=== PATIENT | male | born 1975 | race Caucasian/White ===

== ENCOUNTER 2019-04-11 14:42 | Emergency (ER) | payer BC ==
[2019-04-11 14:53] VITALS: BP 167/115
--- NOTE | 2019-04-11 17:29 | ER Document Report ---
ED Medical Screen (RME) - General Chief Complaint: Dizziness Stated Complaint: HEADACHE,DIZZINESS Time Seen by Provider: 04/11/19 17:20 - [facility] Notes: 04/11/19 17:27 Patient is a 43-year-old male with no significant past medical history who presents complaining of intermittent lightheadedness, dizziness, headaches over the past 3 weeks. Patient states that he does have some pain to his right mid back that does not radiate. Patient states that he has not seen a provider in over 15 years and is here today to have any and every test done as he does not have a family doctor. Patient states that the dizziness and lightheadedness is primarily when he is turning his head and with movements. Patient states that the headache location varies. He will have occasional blurriness to his vision. Patient states that his symptoms are currently mild this time. He is able to eat and drink without difficulty. He is urinating normally and having normal bowel movements. Denies any drug use. Denies any fever, head injury, neck p ain, changes in speech/mentation/hearing, URI, sore throat, chest pain, palpitations, syncope, cough, shortness of breath, wheeze, dyspnea, abdominal pain, nausea/vomiting/diarrhea, urinary retention, dysuria, hematuria, loss of control of bowel or bladder, numbness/tingling, saddle anesthesia, muscle paralysis/weakness, or rash. I have treated and performed a rapid initial assessment of this patient. A comprehensive ED assessment and evaluation of the patient, analysis of test results and completion of medical decision making process will be conducted by additional ED providers. PHYSICAL EXAMINATION: GENERAL: Well-appearing, well-nourished and in no acute distress. A&Ox4. Answers questions appropriately. HEAD: Atraumatic, normocephalic. Non-tender. EYES: Pupils equal round and reactive to light, extraocular movements intact, sclera anicteric, conjunctiva are normal. No nystagmus. ENT: EAC clear b/l. TM's intact b/l without erythema, fluid, or perforation. Nares patent and without discharge. oropharynx clear without exudates. No tonsilar hypertrophy or erythema. Moist mucous membranes. NECK: Normal range of motion, supple without lymphadenopathy. No rigidit y/meningismus. No midline tenderness. LUNGS: Breath sounds clear to auscultation bilaterally and equal. No wheezes rales or rhonchi. HEART: Regular rate and rhythm without murmurs, rubs, gallops. ABDOMEN: Soft, nontender, nondistended abdomen. No guarding, no rebound. Normal bowel sounds present. Musculoskeletal: Ext b/l: FROM to passive/active. Strength 5+/5. No deficits noted. No bony tenderness of extremities. Extremities: No cyanosis, clubbing, or edema b/l. Peripheral pulses 2+. Capillary refill less than 2 seconds. NEUROLOGICAL: NIH 0. GCS 15. Cranial nerves grossly intact. Normal speech, normal gait. Normal sensory, motor exams. Reflexes 2+ b/l. LUCINDA's negative. Pronator drift negative. Heel/arthur, finger/nose wnl. Romberg neg. PSYCH: Normal mood, normal affect. SKIN: Warm, Dry, normal turgor, no rashes or lesions noted. - Related Data Allergies/Adverse Reactions: Penicillins Allergy (Verified 04/11/19 14:45) Past Medical History - Social History Frequency of alcohol use: Occasional Drug Abuse: None Renal/ Medical History: Denies: Hx Peritoneal Dialysis Past Surgical History: Reports: Hx Orthopedic Surgery - left arm and carpal tunnel, finger Physical Exam - Vital signs Vitals: Temp Pulse Resp BP Pulse Ox 98.3 F 90 18 167/115 H 96 04/11/19 14:52 04/11/19 14:52 04/11/19 14:52 04/11/19 14:52 04/11/19 14:52 Course - Vital Signs Vital signs: Temp Pulse Resp BP Pulse Ox 98.3 F 90 18 167/115 H 96 04/11/19 14:52 04/11/19 14:52 04/11/19 14:52 04/11/19 14:52 04/11/19 14:52
[2019-04-11 18:16] LABS: ABSOLUTE BASOPHILS # (AUTO) 0.1 10^3/uL (0.0-0.2); ABSOLUTE EOSINOPHILS # (AUTO) 0.5 10^3/uL (0.0-0.6); ABSOLUTE LYMPHOCYTES (AUTO) 1.9 10^3/uL (0.5-4.7); ABSOLUTE MONOCYTES (AUTO) 0.7 10^3/uL (0.1-1.4); ABSOLUTE NEUT (AUTO) 7.5 10^3/uL (1.7-8.2); BASOPHILS % (AUTO) 0.8 % (0-2); EOSINOPHILS % (AUTO) 5.1 % (0-6); HEMATOCRIT 48.5 % (37.9-51.0); HEMOGLOBIN 16.8 g/dL (13.5-17.0); LYMPHOCYTES % (AUTO) 17.5 % (13-45); MEAN CORPUSCULAR HEMOGLOBIN 30.9 pg (27.0-33.4); MEAN CORPUSCULAR HGB CONC 34.6 g/dL (32.0-36.0); MEAN CORPUSCULAR VOLUME 89 fl (80-97); MONOCYTES % (AUTO) 6.1 % (3-13); PLATELET COUNT 262 10^3/uL (150-450); RED BLOOD COUNT 5.44 10^6/uL (4.35-5.55); RED CELL DISTRIBUTION WIDTH 13.6 % (11.5-14.0); SEGMENTED NEUTROPHILS % (AUTO) 70.5 % (42-78); TOTAL CELLS COUNTED % (AUTO) 100 %; WHITE BLOOD COUNT 10.6 10^3/uL (4.0-10.5)
[2019-04-11 18:20] LABS: APPEARANCE,URINE CLEAR; BILIRUBIN,URINE NEGATIVE (NEGATIVE); COLOR,URINE YELLOW; GLUCOSE, URINE NEGATIVE (NEGATIVE); KETONES,URINE NEGATIVE (NEGATIVE); LEUKOCYTE ESTERASE,URINE NEGATIVE (NEGATIVE); NITRITE,URINE NEGATIVE (NEGATIVE); PROTEIN,URINE NEGATIVE (NEGATIVE); URINE SPECIFIC GRAVITY 1.013; UROBILINOGEN,URINE NEGATIVE mg/dL (<2.0)
--- NOTE | 2019-04-11 18:27 | RADIOLOGY REPORT (SQ) ---
EXAM DESCRIPTION: CT HEAD WITHOUT COMPLETED DATE/TIME: 04/11/2019 6:00 pm REASON FOR STUDY: headache/dizziness COMPARISON: None. TECHNIQUE: Axial images acquired through the brain without intravenous contrast. Images reviewed wit h bone, brain and subdural windows. Images stored on PACS. All CT scanners at this facility use dose modulation, iterative reconstruction, and/or weight based d osing when appropriate to reduce radiation dose to as low as reasonably achievable (ALARA). [facility]: Dose Right [facility]: CareDose [facility]: Dose Right [facility]: Teradose 4D [facility]: [employer] RADIATION DOSE: CT Rad equipment meets quality standard of care and radiation dose reduction techniq ues were employed. CTDIvol: 53.2 mGy. DLP: 937 mGy-cm.. LIMITATIONS: None. FINDINGS: VENTRICLES: Normal size and contour. CEREBRUM: No masses. No hemorrhage. No midline shift. Age appropriate white matter. No evidence for a cute infarction. CEREBELLUM: No masses. No hemorrhage. No alteration of density. No evidence for acute infarction. EXTRA-AXIAL SPACES: No fluid collections. ORBITS AND GLOBE: No intra- or extraconal masses. Normal contour of globe without masses. CALVARIUM: No fracture. PARANASAL SINUSES: No fluid or mucosal thickening. SOFT TISSUES: No mass or hematoma. OTHER: No other significant finding. IMPRESSION: NO ACUTE INTRACRANIAL FINDINGS. EVIDENCE OF ACUTE STROKE: NO. TECHNICAL DOCUMENTATION: JOB ID: [id number] [place]-72 Quality ID # [id number]: Final reports with documentation of one or more dose reduction techniques (e.g., Au tomated exposure control, adjustment of the mA and/or kV according to patient size, use of iterative reconstruction technique) 2010 [employer]- All Rights Reserved Reading location - IP/workstation name: [employer]
[2019-04-11 18:32] LABS: ALANINE AMINOTRANSFERASE 44 U/L (21-72); ALBUMIN 5.1 g/dL (3.5-5.0); ALKALINE PHOSPHATASE 101 U/L (38-126); ANION GAP 9 (5-19); ASPARTATE AMINO TRANSFERASE 29 U/L (17-59); BILIRUBIN,DIRECT 0.2 mg/dL (0.0-0.4); BILIRUBIN,TOTAL 0.8 mg/dL (0.2-1.3); BLOOD UREA NITROGEN 13 mg/dL (7-20); CALCIUM 10.2 mg/dL (8.4-10.2); CARBON DIOXIDE 32 mmol/L (22-30); CHLORIDE 99 mmol/L (98-107); GLUCOSE 96 mg/dL (75-110); POTASSIUM 4.5 mmol/L (3.6-5.0)
[2019-04-11 18:34] LABS: URINE AMPHETAMINES SCREEN NEGATIVE; URINE BARBITURATES SCREEN NEGATIVE; URINE BENZODIAZEPINES SCREEN NEGATIVE; URINE COCAINE SCREEN NEGATIVE; URINE MARIJUANA (THC) SCREEN NEGATIVE; URINE METHADONE SCREEN NEGATIVE; URINE PHENCYCLIDINE SCREEN NEGATIVE
--- NOTE | 2019-04-11 21:42 | ER Document Report ---
ED General - General Chief Complaint: Dizziness Stated Complaint: HEADACHE,DIZZINESS Time Seen by Provider: 04/11/19 17:20 - HPI Notes: Patient is a 43-year-old gentleman who presents to the emergency department for evaluation. He complains primarily of headaches and dizziness. He states that been going on for just under a month. He states is mostly concerned about the dizziness. The headache is in the congregational area, as well as in the back of his head. It seems to come and go. It is not worse in the mornings. He denies any associated visual changes, but admits that he is getting somewhat nearsighted. Has not seen an sort line worker. He also complains of dizziness that he describes as a motion sensation. He states that he was driving recently, he turned around to the backseat, and this exacerbated his symptoms. He denies any associated hearing loss or tinnitus. He currently is not having a headache. He has an a ppointment with a primary care provider on Sunday. He does relate that he has a friend who was recently diagnosed with "brain cancer" who presented with similar symptoms. - Related Data Allergies/Adverse Reactions: Penicillins Allergy (Verified 04/11/19 14:45) Past Medical History - General Information source: Patient - Social History Smoking Status: Current Every Day Smoker Frequency of alcohol use: Occasional Drug Abuse: None Family History: Malignancy - Prostate cancer in father Patient has suicidal ideation: No Patient has homicidal ideation: No Renal/ Medical History: Denies: Hx Peritoneal Dialysis Past Surgical History: Reports: Hx Orthopedic Surgery - left arm and carpal tunnel, finger Review of Systems - Review of Systems Constitutional: No symptoms reported EENT: No symptoms reported Cardiovascular: No symptoms reported Respiratory: No symptoms reported Gastrointestinal: No symptoms reported Genitourinary: No symptoms reported Musculoskeletal: No symptoms reported Skin: No symptoms reported Neurological/Psychological: See HPI Physical Exam - Vital signs Vitals: Temp Pulse Resp BP Pulse Ox 98.3 F 90 18 167/115 H 96 04/11/19 14:52 04/11/19 14:52 04/11/19 14:52 04/11/19 14:52 04/11/19 14:52 - Notes Notes: Vital signs reviewed, please refer to chart. Head is normocephalic, atraumatic. Pupils equal round, reactive to light. TMs are pearly jolly with good light reflex. Neck is supple without meningismus. Heart is regular rate and rhythm. Lungs are clear to auscultation bilaterally. Abdomen is soft, nontender, normoactive bowel sounds throughout. Extremities without cyanosis, clubbing. Posterior calves are nontender. Peripheral pulses are equal. Skin is warm and dry. Patient is awake, alert, oriented x3. Cranial nerves II - XII are grossly intact without focal neurological deficits. Strength is plus 5 out of 5 bilateral upper and lower extremities. Sensation is intact. Reflexes symmetrical. Intact [id number], rapid alternating movements, [id number]. Course - Re-evaluation Re-evalutation: 04/11/19 21:43 Patient presents emergency department for evaluation of headache and dizziness. His headache is not the worst headache of his life. His symptoms seem most consistent with a positional vertigo, particularly given the fact that turning h is head makes them worse. The patient is primarily concerned about ruling out "brain cancer." I explained to him that a noncontrast CT scan could not do that in its entirety. I strongly urged the patient to follow-up with his primary care provider. He states that he was supposed to have an appointment today that got canceled. I did get rescheduled for Sunday, but he was "too scared to wait that long." Here today he is hypertensive, but otherwise has an entirely unremarkable work-up. It is likely that his headache and some symptoms may be secondary to some myopia, likely secondary to age. He is to follow-up as scheduled on Sunday. I will go ahead and send him home with meclizine. I am giving him 1 dose here to go, as he states he has not eaten, and would prefer to take this medication with food. I believe that is reasonable. I will send him home with prescription for meclizine, instructions on elevated blood pressure, and also instructions to return with worsening. He voiced understanding of his discharge. 04/11/19 21:46 - Vital Signs Vital signs: Temp Pulse Resp BP Pulse Ox 98.3 F 90 18 167/115 H 96 04/11/19 14:52 04/11/19 14:52 04/11/19 14:52 04/11/19 14:52 04/11/19 14:52 - Laboratory Result Diagrams: 04/11/19 18:00 04/11/19 18:00 Laboratory results interpreted by me: 04/11/19 04/11/19 18:00 18:00 WBC 10.6 H Carbon Dioxide 32 H Albumin 5.1 H - Diagnostic Test Radiology reviewed: Reports reviewed Radiology results interpreted by me: 04/11/19 21:[address] 04/11/19 17:30 IMPRESSION: NO ACUTE INTRACRANIAL FINDINGS. EVIDENCE OF ACUTE STROKE: NO. - EKG Interpretation by Me Additional EKG results interpreted by me: 04/11/19 21:44 Sinus mechanism with a rate of 69 bpm. Left axis deviation. No acute ST changes concerning for ischemia or infarction. No old studies available for comparison. Discharge - Discharge Clinical Impression: Positional vertigo, Headache Condition: Stable Disposition: HOME, SELF-CARE Instructions: Dizziness ([facility]), Meclizine ([facility]), Vertigo ([facility]) Additional Instructions: Rest. Take meclizine as needed for dizziness. Follow-up with your primary care physician as scheduled on Sunday. Return to the emergency department with worsening or new concerning symptoms. Forms: Elevated Blood Pressure
[2019-04-11] MEDS ORDERED: MECLIZINE HCL 25 MG TABLET PO ONE (21:45)
--- NOTE | 2019-04-12 09:58 | EKG REPORT ---
SEVERITY:- BORDERLINE ECG - SINUS RHYTHM BORDERLINE LEFT AXIS DEVIATION BORDERLINE R WAVE PROGRESSION, ANTERIOR LEADS : Confirmed by: Trevor Copeland MD 12-Apr-2019 09:57:54
== END 2019-04-11 22:11 | disposition home or self-care (01) ==
LOC: ER 14:42
DX: R42 Dizziness and giddiness (principal); R51 Headache; I10 Essential (primary) hypertension; F17.200 Nicotine dependence, unspecified, uncomplicated; Z88.0 Allergy status to penicillin
CPT/HCPCS: 36415; 70450; 80053; 80307; 81001; 84443; 85025; 93005; 93010; 99284